=== PATIENT | female | born 1975 | race Caucasian/White ===

== ENCOUNTER → 2021-01-22 11:36 | Outpatient (BNVA) | payer SELFPAY | PROVIDERS: Family Provider Family Medicine; PCP Family Medicine; Visit Provider Obstetrics & Gynecology | DX: Z01.419 Encounter for gynecological examination (general) (routine) without abnormal findings (principal); R63.5 Abnormal weight gain | CPT/HCPCS: 84443; 87624 ==

== ENCOUNTER 2022-05-14 08:51 | Outpatient (CLI) | payer SELFPAY ==
--- NOTE | 2022-05-14 09:13 | MM_ITS ---
WS: [id number] BILATERAL SCREENING DIGITAL TOMOSYNTHESIS MAMMOGRAM WITH CAD HISTORY: SCREEN COMPARISON: 12/19/2018 and 07/23/2015 Bilateral CC and MLO views with tomosynthesis and synthetic mammography submitted. Computer aided det ection analyzed. Breast composition: There are scattered areas of fibroglandular density. No suspicious masses, microc alcifications or architectural distortion. MM/[place] [id number] IMPRESSION: BI-RADS: 1-Negative FOLLOW UP: 1 Year Follow-up
== END 2022-05-14 08:52 | disposition home or self-care (01) ==
PROVIDERS: PCP Family Medicine; Visit Provider Nurse Practitioner Women's Health
DX: Z12.31 Encounter for screening mammogram for malignant neoplasm of breast (principal)
CPT/HCPCS: 77063; 77067

== ENCOUNTER 2025-01-16 22:01 | Emergency (ER) | payer BC, SELFPAY ==
--- OUTSIDE RECORDS SUMMARY | 2025-01-16 22:04 | XMS_ITS | Encounter Summary ---
Author Organization [facility] Address [address] [place] [address] Care Team Providers Care Test Technician Name Role Phone Jessenia Peters MD Primary Care Provider +1- [phone] Encounter Details Date Type Department Care Team (Latest Contact Info) Description 06/05/2002 Outpatient Historical [facility] Family Medicine [place] [address] [facility] [address] [place] [address] Terrence Cabrera DO NO ADDRESS ON FILE PREG EXAM-PREG UNCONFIRM (Primary Dx) Social History Tobacco Use Types Packs/Day Years Used Date Smoking Tobacco: Never Assessed Comments Unknown Sex and Gender Information Value Date Recorded Sex Assigned at Not on file 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
--- OUTSIDE RECORDS SUMMARY | 2025-01-16 22:04 | XMS_ITS | Clinical Summary ---
Author Organization [facility] Address [address] [place] [address] Care Team Providers Care Earth Science Technician Name Role Phone Jessenia Peters MD Primary Care Provider +1- [phone] Allergies No known active allergies Medications acetaminophen (TYLENOL) 500 mg tablet Take 500 mg by mouth every 6 hours as needed. 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 ENGINE INSPECTOR Gender Identity Not on file Sexual Orientation Not on file Last Filed Vital Signs Vital Sign Reading Time Taken Comments Blood Pressure 133/66 01/25/2018 8:33 PM GASOLINE ENGINE INSPECTOR Pulse - - Temperature - - Respiratory Rate 16 01/25/2018 8:33 PM GASOLINE ENGINE INSPECTOR Oxygen Saturation 96% 01/25/2018 8:33 PM GASOLINE ENGINE INSPECTOR Inhaled Oxygen Concentration - - Weight 54.9 kg (121 lb) 01/25/2018 7:06 PM GASOLINE ENGINE INSPECTOR Height 157.5 cm (5' 2 ) 01/25/2018 7:06 PM GASOLINE ENGINE INSPECTOR Body Mass Index 22.13 01/25/2018 7:06 PM GASOLINE ENGINE INSPECTOR Plan of Treatment Health Maintenance Due Date Last Done Comments DTAP/TDAP/TD VACCINES (1 - Tdap) 1993 HEPATITIS B VACCINES (1 of 3 - 19+ 3-dose series) 02/22 HPV/Cotest (21-29) 1995 CERVICAL CANCER SCREENING 2004 HPV/Cotest (30-65) 2004 PAP SMEAR 2004 BREAST CANCER SCREENING 2014 COLORECTAL SCREENING 2019 Colorectal Cancer Screening 2019 FIT-DNA Q 3 years 2019 FIT/FOBT Q 1 year 2019 Flex Sig/CT Colonography Q 5 years 2019 ZOSTER VACCINE (1 of 2) 2024 INFLUENZA VACCINE (#1) 2024 Care Teams Earth Science Technician Relationship Specialty Start Date End Date Jessenia Peters MD [address] [place] [address] PCP - General Family Practice 01/25/18
--- OUTSIDE RECORDS SUMMARY | 2025-01-16 22:04 | XMS_ITS | Encounter Summary ---
Author Organization [facility] Address [address] [place] [address] Care Team Providers Care Aerodynamics Professor Name Role Phone Jessenia Peters MD Primary Care Provider +1- [phone] Encounter Details Date Type Department Care Team (Late st Contact Info) Description 02/28/2007 Outpatient Historical [facility] Family Medicine [address] [place] [address] Jose Alejandro Bennett, PA NO ADDRESS ON FILE Social History Tobacco Use Types Packs/Day Years Used Date Smoking Tobacco: Never Assessed Comments Unknown Sex and Gender Information Value Date Recorded Sex Assigned at Not on file Legal Sex Female 6:00 AM PATROL GUARD Gender Identity Not on file Sexual Orientation Not on file documented as of this encounter Plan of Treatment Not on file documented as of this encounter Visit Diagnoses Not on filedocumented in this encounter Care Teams Aerodynamics Professor Relationship Specialty Start Date End Date Jessenia Peters MD [address] [place] [address] PCP - General Family Practice 01/25/18 documented as of this encounter
--- OUTSIDE RECORDS SUMMARY | 2025-01-16 22:04 | XMS_ITS | Encounter Summary ---
Author Organization [facility] Address [address] [place] [address] Care Team Providers Care Furnace Puncher Name Role Phone Jessenia Peters MD Primary Care Provider +1- [phone] Encounter Details Date Type Department Care Team (Latest Contact Info) Description 02/26/2005 Outpatient Historical [facility] Family Medicine [address] [place] [address] Reva Cavazos NP NO ADDRESS ON FILE ACUTE SINUSITIS NOS (Primary Dx); ACUTE BRONCHITIS Social History Tobacco Use Types Packs/Day Years Used Date Smoking Tobacco: Never Assessed Comments Unknown Sex and Gender Information Value Date Recorded Sex Assigned at Not on file Legal Sex Female 6: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
--- OUTSIDE RECORDS SUMMARY | 2025-01-16 22:04 | XMS_ITS | Encounter Summary ---
Author Organization [facility] Address [address] [place] [address] Care Team Providers Care Recreation Instructor Name Role Phone Jessenia Peters MD Primary Care Provider +1- [phone] Encounter Details Date Type Department Care Team (Latest Contact Info) Description 07/28/1999 Outpatient Historical [facility] Family Medicine [place] [address] [facility] 60 [place] [address] Mikel Luther MD [address] [facility] [address] [place] [address] state, incidental (Primary Dx) Social History Tobacco Use Types Packs/Day Years Used Date Smoking Tobacco: Never Assessed Comments Unknown Sex and Gender Information Value Date Recorded Sex Assigned at Not on file Legal Sex Female 6:00 AM ADMIN PROG COORD Gender Identity Not on file Sexual Orientation Not on file documented as of this encounter Plan of Treatment Not on file documented as of this encounter Visit Diagnoses Diagnosis state, incidental- Primary documented in this encounter Care Teams Recreation Instructor Relationship Specialty Start Date End Date Jessenia Peters MD [address] [place] [address] PCP - General Family Practice 01/25/18 documented as of this encounter
--- OUTSIDE RECORDS SUMMARY | 2025-01-16 22:04 | XMS_ITS | Encounter Summary ---
Author Organization [facility] Address [address] [place] [address] Care Team Providers Care Facility Manager Name Role Phone Jessenia Peters MD Primary Care Provider +1- [phone] Encounter Details Date Type Department Care Team (Latest Contact Info) Description 03/16/2001 Outpatient Historical [facility] Family Medicine [place] 104 [facility] 60 [place] [address] Jaky Lima MD NO ADDRESS ON FILE ACUTE BRONCHITIS (Primary Dx); UNS ASTHMA WOSTATUS ASTHMATICUS Social History Tobacco Use Types Packs/Day Years Used Date Smoking Tobacco: Never Assessed Comments Unknown Sex and Gender Information Value Date Recorded Sex Assigned at Not on file Legal Sex Female 6:00 AM OUTREACH COUNSELOR Gender Identity Not on file Sexual Orientation Not on file documented as of this encounter Plan of Treatment Not on file documented as of this encounter Visit Diagnoses Diagnosis Acute bronchitis- Primary Unspecified asthma(493.90) Unspecified asthma documented in this encounter Care Teams Facility Manager Relationship Specialty Start Date End Date Jessenia Peters MD [address] [place] [address] PCP - General Family Practice 01/25/18 documented as of this encounter
--- OUTSIDE RECORDS SUMMARY | 2025-01-16 22:04 | XMS_ITS | Encounter Summary ---
Author Organization [facility] Address [address] [place] [address] Care Team Providers Care Sales Consultant Residential Manager Name Role Phone Jessenia Peters MD Primary Care Provider +1- [phone] Encounter Details Date Type Department Care Team (Latest Contact Info) Description 05/24/2001 Outpatient Historical [facility] Family Medicine [place] [address] [facility] 60 [place] [address] Terrence Cabrera DO NO ADDRESS ON FILE ACUTE SINUSITIS NOS (Primary Dx); DERMATITIS NOS Social History Tobacco Use Types Packs/Day Years Used Date Smoking Tobacco: Never Assessed Comments Unknown Sex and Gender Information Value Date Recorded Sex Assigned at Not on file Legal Sex Female 6:00 AM BARREL CAP SETTER Gender Identity Not on file Sexual Orientation Not on file documented as of this encounter Plan of Treatment Not on file documented as of this encounter Visit Diagnoses Diagnosis Acute sinusitis, unspecified- Primary Contact dermatitis and other eczema, due to unspecified cause documented in this encounter Care Teams Sales Consultant Residential Manager Relationship Specialty Start Date End Date Jessenia Peters MD [address] [place] [address] PCP - General Family Practice 01/25/18 documented as of this encounter
--- OUTSIDE RECORDS SUMMARY | 2025-01-16 22:04 | XMS_ITS | Encounter Summary ---
Author Organization [facility] Address [address] [place] [address] Care Team Providers Care Framework Developer Name Role Phone Jessenia Peters MD Primary Care Provider +1- [phone] Encounter Details Date Type Department Care Team (Latest Contact Info) Description 05/14/1998 Outpatient Historical [facility] Family Medicine [place] [address] [facility] 60 [place] [address] Terrence Cabrera DO NO ADDRESS ON FILE Pneumonia, organism unspecified(486) (Primary Dx) Social History Tobacco Use Types Packs/Day Years Used Date Smoking Tobacco: Never Assessed Comments Unknown Sex and Gender Information Value Date Recorded Sex Assigned at Not on file Legal Sex Female 6:00 AM DIRECTOR OF ENTERPRISE ARCHITECTURE Gender Identity Not on file Sexual Orientation Not on file documented as of this encounter Plan of Treatment Not on file documented as of this encounter Visit Diagnoses Diagnosis Pneumonia, organism unspecified(486)- Primary Pneumonia, organism unspecified documented in this encounter Care Teams Framework Developer Relationship Specialty Start Date End Date Jessenia Peters MD [address] [place] [address] PCP - General Family Practice 01/25/18 documented as of this encounter
--- OUTSIDE RECORDS SUMMARY | 2025-01-16 22:04 | XMS_ITS | Encounter Summary ---
Author Organization [facility] Address [address] [place] [address] Care Team Providers Care Steel Box Toe Inserter Name Role Phone Jessenia Peters MD Primary Care Provider +1- [phone] Encounter Details Date Type Department Care Team (Latest Contact Info) Description 04/09/2002 Outpatient [facility] Family Medicine [place] [address] [facility] 60 [place] [address] Mkiel Luther MD [address] [address] MENSTRUAL DISORDER NOS (Primary Dx) Social History Tobacco Use Types Packs/Day Years Used Date Smoking Tobacco: Never Assessed Comments Unknown Sex and Gender Information Value Date Recorded Sex Assigned at Not on file Legal Sex Female 6:00 AM PICKERS MATERIAL HANDLERS Gender Identity Not on file Sexual Orientation Not on file documented as of this encounter Plan of Treatment Not on file documented as of this encounter Visit Diagnoses Diagnosis Unspecified disorder of menstruation and other abnormal bleeding from female genital tract- Primary documented in this encounter Care Teams Steel Box Toe Inserter Relationship Specialty Start Date End Date Jessenia Peters MD [address] [place] [address] PCP - General Family Practice 01/25/18 documented as of this encounter
--- OUTSIDE RECORDS SUMMARY | 2025-01-16 22:04 | XMS_ITS | Encounter Summary ---
Author Organization [facility] Address [address] [place] [address] Care Team Providers Care Lime Boiler Name Role Phone Jessenia Peters MD Primary Care Provider +1- [phone] Encounter Details Date Type Department Care Team (Latest Contact Info) Description 04/13/1999 Outpatient Historical [facility] Family Medicine [place] [address] [facility] 60 [place] [address] Terrence Cabrera, NO ADDRESS ON FILE Acute upper respiratory infections of unspecified site (Primary Dx) Social History Tobacco Use Types Packs/Day Years Used Date Smoking Tobacco: Never Assessed Comments Unknown Sex and Gender Information Value Date Recorded Sex Assigned at Not on file Legal Sex Female 6:00 AM CLIENT PROGRAM MANAGER Gender Identity Not on file Sexual Orientation Not on file documented as of this encounter Plan of Treatment Not on file documented as of this encounter Visit Diagnoses Diagnosis Acute upper respiratory infections of unspecified site- Primary documented in this encounter Care Teams Lime Boiler Relationship Specialty Start Date End Date Jessenia Peters MD [address] [place] [address] PCP - General Family Practice 01/25/18 documented as of this encounter
--- OUTSIDE RECORDS SUMMARY | 2025-01-16 22:04 | XMS_ITS | Clinical Summary ---
Author Organization [facility] Address [address] [place]: Epic Prelude ADT [place] [address] Care Team Providers Care Income Tax Analyst Name Role Phone Jessenia Peters MD Primary Care Provider +1- [phone] Allergies No known active allergies Medications acetaminophen (TYLENOL) 500 mg tablet Take 500 mg by mouth every 6 hours as needed. 01/25/2018 Active Social History Tobacco Use Types Packs/Day Years Used Date Smoking Tobacco: Never Smokeless Tobacco: Never Alcohol Use Standard Drinks/Week Comments No 0 (1 standard drink = 0.6 oz pur e alcohol) Comments Unknown Sex and Gender Information Value Date Recorded Sex Assigned at Not on file Legal Sex Female 4:03 PM PHYSICIAN REPRESENTATIVE Gender Identity Not on file Sexual Orientation Not on file Last Filed Vital Signs Vital Sign Reading Time Taken Comments Blood Pressure 133/66 01/25/2018 8:33 PM PHYSICIAN REPRESENTATIVE Pulse - - Temperature - - Respiratory Rate 16 01/25/2018 8:33 PM PHYSICIAN REPRESENTATIVE Oxygen Saturation - - Inhaled Oxygen Concentration - - Weight 54.9 kg (121 lb) 01/25/2018 7:06 PM PHYSICIAN REPRESENTATIVE Height 157.5 cm (5' 2 ) 01/25/2018 7:06 PM PHYSICIAN REPRESENTATIVE Body Mass Index 22.13 01/25/2018 7:06 PM PHYSICIAN REPRESENTATIVE Plan of Treatment Health Maintenance Due Date [...] 2024 INFLUENZA VACCINE (#1) 2024 Care Teams Income Tax Analyst Relationship Specialty Start Date End Date Jessenia Peters MD [address] [place] [address] PCP - General Family Practice 01/25/18
[2025-01-16 22:12] VITALS: BP 145/90; PULSE 110; RESP 17; TEMP 36.8; O2SAT 96; BMI 24.5
--- NOTE | 2025-01-16 22:14 | CTR_ITS ---
PROCEDURE INFORMATION: Exam: CT Head Without Contrast Exam date and time: 01/16/2025 10:18 PM Age: 49 years old Clinical indication: Stroke-like symptoms; Headache and vomiting; Additional info: Symptoms of acute stroke TECHNIQUE: Imaging protocol: Computed tomography of the head without contrast. Radiation optimization: All CT scans at this facility use at least one of these dose optimization techniques: automated exposure control; mA and/or kV adjustment per patient size (includes targeted exams where dose is matched to clinical indication); or iterative reconstruction. Other technique: STROKE PROTOCOL was implemented. COMPARISON: MR head wo con* [id number] 06/15/2018 4:14 PM RADIATION DOSE METRICS: Total DLP (mGy-cm): 979.87 FINDINGS: Brain: Normal. No hemorrhage. Unremarkable white matter. No mass effect. Cerebral ventricles: No ventriculomegaly. Paranasal sinuses: Visualized sinuses are unremarkable. No fluid levels. Mastoid air cells: Visualized mastoid air cells are well aerated. Bones: Unremarkable. No acute fracture. Soft tissues: Unremarkable. CT/CT head thrombolytic [id number] IMPRESSION: No acute intracranial abnormality. ASSESSMENT: ASPECTS ([place] Stroke Program Early CT Score) is 10.
--- NOTE | 2025-01-16 22:14 | ECG_ITS ---
[facility] Date: 2025-01-16 Pat Name: Allie Ortiz Department: Room: Gender: Female Costumed Character: : 1975 Requested By: Seth Rodrigues Order Number: [id number] Abdoul MD: Elsy Samuel M.D. Measurements Intervals [place] Rate: 105 P: 61 TN: 157 QRS: 50 QRSD: 80 T: 48 QT: 319 QTc: 422 Interpretive Statements SINUS TACHYCARDIA ABNORMAL RHYTHM ECG Compared to ECG 06/16/2018 01:12:16 Sinus rhythm no longer present Sinus arrhythmia no longer present Electronically Signed On 01-17-2025 17:24:42 FLOORMAN by Elsy Samuel M.D. [id number]
--- NOTE | 2025-01-16 22:16 | ED_ITS ---
HPI - Neuro Symptoms/Deficit 2 General: Chief Complaint: Neuro Symptoms/Deficit Stated Complaint: stroke Time Seen by Provider: 01/16/25 22:09 History of Present Illness: 49-year-old female presents emergency ro om complaining left-sided weakness headache photophobia nausea and began at around 30 minutes prior to arrival. She has had a severe headache all day. She reports she has had TIAs in the past she is on amlodipine she is not on any antiplatelet therapy or statins. No chest pain or shortness of breath. Initial NIH score of 3 with weakness on left arm left leg and ataxia of the left arm Associated symptoms: Deny chest pain Related Data Home Medications ?Medication ?Instructions ?Recorded ?Confirmed clonidine HCl 0.1 mg tablet 1 mg PO BID PRN 04/30/22 0 04/30/24 Previous Rx's ?Medication ?Instructions ?Recorded amlodipine 5 mg tablet See Rx Instructions PO DAILY 90 04/30/24 days #125 tabs norgestimate 0.25 mg-ethinyl See Rx Instructions .Rout e 09/04/24 estradiol 0.035 mg tablet .COMPLEX #84 tabs (Estarylla) aspirin 81 mg tablet,delayed 81 mg PO DAILY #30 tabs 1 03/19/24 release Allergies Allergy/AdvReac Type Severity Reaction Status Date / Time coconut Allergy Severe throat Verified 04/30/24 09:14 swells and rash Review of Systems 2 Const: Denies: fever(s) or chills Card: Denies: chest pain Resp: Denies: dyspnea GI: Denies: abdominal pain : Denies: dysuria, urinary frequency or urinary urgency Musc: Denies: neck pain or back pain Skin/Breast: Denies: rash PFSH ED 2 PFSH: Medical History Palpitation Depression Was on medication while being evaluated for possible TIA. Transient ischemic attack (~03/2018) Hypertension Surgical History [place] teeth removed (~1994) Family History Mother Hypertension Heart disease Grandmother Hypertension Maternal Hypercholesterolemia Maternal Grandfather Heart disease Maternal Denies family history of Colon cancer Ovarian cancer Diabetes Hyperlipidemia Breast cancer Uterine cancer Thyroid disease Stroke Social History Smoking and tobacco/nicotine status: never used tobacco/nicotine NIH stroke score 2 NIHSS: Level Of Consciousness - 1a: 0 Level Of Consciousness Questions - 1b: Both Correct Level Of Consciousness Commands - 1c: Both Correct Best Gaze - 2: Normal Visual Garcia - 3: No Visual Loss Facial Palsy - 4: N ormal Motor Arm Right - 5: No Drift Motor Arm Left - 5: Drift Motor Leg Right - 6: No Drift Motor Leg Left - 6: Drift Limb Ataxia - 7: Present In One Limb Sensory - 8: Normal Best Language - 9: No Aphasia Dysarthia - 10: Normal Extinction And Inattention - 11: 0 Score: Total Score: 3 Physical Exam 2 Const: GENERAL APPEARANCE: cooperative ORIENTATION/CONSCIOUSNESS: Yes awake, Yes oriented to person, Yes oriented to place and Yes oriented to time HENMT: COMMON NORMALS: normocephalic, atraumatic and hearing grossly normal bilaterally HEAD & SCALP: normocephalic and atraumatic Resp: COMMON NORMALS: normal respiratory effort, No retractions, No use of accessory muscles and clear to auscultation bilaterally AUSCULTATION: clear to auscultation bilaterally Cardio: COMMON NORMALS: regular rate, regular rhythm and No murmurs present (Cardio) RATE: regular rate RHYTHM: regular rhythm GI: COMMON NORMALS: Soft to palpation and No hepatosplenomegaly present A USCULTATION: Yes normoactive bowel sounds PALPATION: Yes Soft to palpation, No Tenderness to palpation present (GI), No Guarding due to palpation present (GI) and Yes No hepatosplenomegaly present Extremity: COMMON NORMALS: normal to inspection, capillary refill normal, no clubbing, cyanosis or edema, no calf tenderness and no pedal edema Neuro: SENSORIUM/ORIENTATION: Yes oriented to person, Yes oriented to place and Yes oriented to time Skin: COMMON NORMALS: no rashes or lesions noted GENERAL SKIN EXAM: no rashes or lesions noted Course 2 Vital Signs: Vital signs: Vital Signs Temperature 98.3 F 01/16/25 22:12 Pulse Rate 81 01/17/25 01:30 Respiratory Rate 17 01/16/25 22:12 Blood Pressure 133/78 01/17/25 01:30 Pulse Oximetry 99 01/17/25 01:30 Oxygen Delivery Me thod Room Air 01/17/25 01:30 MDM - Neuro Symptoms/Deficit Medical Decision Making Initial stroke exam has an NIH of 3 however it is not consistent. Her sensation is normal she has weakness in the left arm and leg ataxia in the left arm. I consulted [facility] on-call they are on-call for us for stroke alert they seen patient via telehealth. The doctor on-call agrees he has believes this is more of a migraine with aura does not think that this is a acute CVA and does not recommend TNKase at this time. He does recommend treating the headache. Headache is improved tried to ambulate the patient a couple of times she still has some weakness in her left leg. Patient prefers to go home her symptoms have resolved the headache is better. Medical decision making Social determinants: Family support is with the patient in the emergency room I reviewed the patient's medical record. I reviewed the patient's current home meds Alternate historians: None Differential diagnosis TIA versus CVA versus migraine with aura Lab Review: Labs reviewed as found in the chart no acute findings Imaging: CT head negative for acute CVA or masses Assessment of risk: Level of risk: Low Hospitalization considerations: Considered hospitalization however symptoms resolved Reexamination: On repeat exam no focal findings Assessment and plan: On-call neurology from [facility] is seeing patient via telehealth he concurs that this is likely not an acute CVA he recommends treating the headache which we did the headache improved symptoms resolved patient prefers to go home. She reports that she has had TIAs in the past will place her on baby aspirin daily and have her follow-up with neurology case management has been asked to make a follow-up appointment with neurology. Medical Records I reviewed the patient's medical records. Lab Data I reviewed the patient's lab results. 01/16/25 22:16 01/16/25 22:[address] 01/16/25 22:14 IMPRESSION: No acute intracranial abnormality. ASSESSMENT: ASPECTS ([place] Stroke Program Early CT Score) is 10. ADDENDUM: 01/16/25 134 THIS REPORT CONTAINS FINDINGS THAT MAY BE CRITICAL TO PATIENT CARE. The findings were verbally communicated via telephone conference with SETH BOLAND at 10:31 PM GAS METER INSTALLER on 01/16/2025. The findings were acknowledged and understood. Laboratory Results WBC 9.00 10^3/uL (3.29-11.43) 01/16/25 22:16 RBC 4.69 10^6/uL (3.85-5.65) 01/16/25 22:16 Hgb 13.70 g/dL (11.27-16.99) 01/16/25 22:16 Hct 40.5 % (36-47) 01/16/25 22:16 MCV 86.4 fl (85-98) 01/16/25 22:16 MCH 29.2 pg (27-33) 01/16/25 22:16 MCHC 33.8 g/dL (30-55) 01/16/25 22:16 RDW 12.8 % (12.1-15.1) 01/16/25 22:16 Plt Count 339 10^3/cmm (157-399) 01/16/25 22:16 MPV 9.2 fL (7.4-10.4) 01/16/25 22:16 Neut % (Auto) 63.8 % 01/16/25 22:16 Lymph % (Auto) 28.9 % 01/16/25 22:16 [place] % (Auto) 5.9 % 01/16/25 22:16 Eos % (Auto) 0.6 % 01/16/25 22:16 Baso % (Auto) 0.6 % 01/16/25 22:16 Neut # (Auto) 5.75 10^3/uL (1.8-7.7) 01/16/25 22:16 Lymph # (Auto) 2.6 10^3/uL (0.8-4.8) 01/16/25 22:16 [place] # (Auto) 0.5 10^3/uL (0.2-0.9) 01/16/25 22:16 Eos # (Auto) 0.1 10^3/uL (0.0-0.8) 01/16/25 22:16 Baso # (Auto) 0.1 10^3/uL (0.0-0.1) 01/16/25 22:16 Nucleated RBC % (auto) 0 % 01/16/25 22:16 Nucleated RBCs # 0.0 /100WBC 01/16/25 22:16 PT 12.70 SECONDS (12.1-14.9) 01/16/25 22:16 INR 0.89 (0.8-1.2) 01/16/25 22:16 APTT 26.0 SECONDS (23.9-36.7) 01/16/25 22:16 Sodium 140 mmol/L (136-145) 01/16/25 22:16 Potassium 3.7 mmol/L (3.5-5.1) 01/16/25 22:16 Chloride 104 mmol/L (98-107) 01/16/25 22:16 Carbon Dioxide 23 mmol/L (22-29) 01/16/25 22:16 Anion Gap 16.7 (5-19) 01/16/25 22:16 BUN 15 mg/dL (6-20) 01/16/25 22:16 Creatinine 0.8 mg/dL (0.5-0.9) 01/16/25 22:16 GFR Calculation 75.9 mL/min (90-130) L 01/16/25 22:16 Glucose 118 mg/dL (65-115) H 01/16/25 22:16 POC Glucose 115 mg/dL (70-110) H 01/16/25 22:11 Calculated Osmolality 292 mOsm/kg (285-295) 01/16/25 22:16 Calcium 8.8 mg/dL (8.5-10.5) 01/16/25 22:16 Total Bilirubin 0.2 mg/dL (0.15-1.2) 01/16/25 22:16 AST 17 U/L (0-32) 01/16/25 22:16 ALT 19 U/L (0-33) 01/16/25 22:16 Alkaline Phosphatase 90 U/L (35-105) 01/16/25 22:16 Total Protein 7.8 g/dL (6.6-8.7) 01/16/25 22:16 Albumin 4.2 g/dL (3.5-5.2) 01/16/25 22:16 Globulin 3.6 g/dL (1.3-4.6) 01/16/25 22:16 Urine Color Yellow (Yellow) 01/17/25 00:06 Urine Appearance Clear (CLEAR) 01/17/25 00:06 Urine pH 5.5 (5-7) 01/17/25 00:06 Ur Specific [place] 1.023 (1.005-1.030) 01/17/25 00:06 Urine Protein Trace (Negative) A 01/17/25 00:06 Urine Glucose (UA) Negative (Normal) 01/17/25 00:06 Urine Ketones Negative (Negative) 01/17/25 00:06 Urine Blood 3+ (Negative) A 01/17/25 00:06 Urine Nitrate Negative (Negative) 01/17/25 00:06 Urine Bilirubin Negative (Negative) 01/17/25 00:06 Urine Urobilinogen 0.2 mg/dL (Negative) 01/17/25 00:06 Ur Leukocyte Esterase Negative (Negative) 01/17/25 00:06 Urine RBC 21-50 /hpf (0-2) H 01/17/25 00:06 Urine WBC 0-5 /hpf (0-5) 01/17/25 00:06 Ur Squamous Epith Cells 0-5 /hpf (0-5) 01/17/25 00:06 Amorphous Sediment Not Reportable 01/17/25 00:06 Urine Bacteria Trace /hpf (NONE) 01/17/25 00:06 Hyaline Casts 1.21 /lpf 01/17/25 00:06 Urine Opiates Screen Negative ng/mL (Negative) 01/17/25 00:06 Ur Barbiturates Screen Negative ng/mL (Negative) 01/17/25 00:06 Ur Phencyclidine Scrn Negative ng/mL (Negative) 01/17/25 00:06 Ur Amphetamines Screen Negative ng/mL (Negative) 01/17/25 00:06 U Benzodiazepines Scrn Negative ng/mL (Negative) 01/17/25 00:06 Urine Cocaine Screen Negative ng/mL (Negative) 01/17/25 00:06 U Marijuana (THC) Screen Negative ng/mL (Negative) 01/17/25 00:06 All radiology interpretation(s) finalized by discharge Discharge Plan Discharge Patient Disposition: Home Clinical Impression: Migraine headache with aura Condition: Stable Prescriptions: New aspirin 81 mg tablet,delayed release (DR/EC) 81 mg PO DAILY Qty: 30 0RF No Action clonidine HCl 0.1 mg tablet 1 mg PO BID PRN amlodipine 5 mg tablet See Rx Instructions PO DAILY 90 Days Qty: 125 3RF Rx Instructions: 1 tab by mouth one day alternating with next day taking 2 tab by mouth and cont *PLEASE MAIL norgestimate-ethinyl estradiol [Estarylla] 0.25-0.035 mg tablet See Rx Instructions .ROUTE .COMPLEX Qty: 84 1RF Dose Instruction: TAKE 1 TABLET BY MOUTH DAILY Rx Instructions: TAKE 1 TABLET BY MOUTH DAILY Discharge Orders: Discharge ED (Routine); Ordered 01/17/25 Ordered By: Seth Boland Referrals: Js Quiñones, LEASING ASSOCIATE [Primary Care Provider, Family Practice] Discharge Diet: Usual diet Discharge Activity: Resume usual activity Patient Instructions: Opioid Safety, Pain Management, Patient Portal & Fabricio Instructions Activity Restrictions/Additional Instructions: [facility]. It is very important that you follow up as instructed or that you return to the Emergency Department should you have concerns or if your condition changes or worsens in any way. Emergency department visits are focused on emergent conditions, in some cases you may require further evaluation on an outpatient basis. You were seen in the emergency room with a complaint of headache with symptoms on the left side. We evaluated for stroke. Your CT of your head was negative the on-call stroke neurologist seen you as well. He concurred he did not think you are actually having a stroke at this point and did not recommend TNKase. He felt your symptoms were related to a migraine with aura. You responded well to the medications we gave the emergency room for the headache. fund manager will make arrangements for you to follow-up with neurology as an outpatient. You would reported that you previously had a TIA we do recommend he take baby aspirin daily (Please note that included in your discharge packet is information concerning opioid safety and pain management. This information is given to all patients were discharged from the ER regardless of their discharge diagnosis or the medicines they usually take or are prescribed.) Print Language: Spanish Coding Level of Care Code ED Product Support Consultant for [employer]ang
[2025-01-16 22:35] LABS: Hematocrit 40.5 % (36-47); Hemoglobin 13.70 g/dL (11.27-16.99); Mean Corpuscular HGB Conc 33.8 g/dL (30-55); Mean Corpuscular Hemoglobin 29.2 pg (27-33); Mean Corpuscular Volume 86.4 fl (85-98); Nucleated Red Blood Cells % 0 %; Platelet Count 339 10^3/cmm (157-399); Red Blood Count 4.69 10^6/uL (3.85-5.65); White Blood Count 9.00 10^3/uL (3.29-11.43)
[2025-01-16 22:39] LABS: INR 0.89 (0.8-1.2); Prothrombin Time 12.70 SECONDS (12.1-14.9)
[2025-01-16 22:41] LABS: Partial Thromboplastin Time 26.0 SECONDS (23.9-36.7)
[2025-01-16 22:44] LABS: Alanine Aminotransferase 19 U/L (0-33); Albumin Level 4.2 g/dL (3.5-5.2); Alkaline Phosphatase 90 U/L (35-105); Anion Gap 16.7 (5-19); Aspartate Amino Transferase 17 U/L (0-32); Blood Urea Nitrogen 15 mg/dL (6-20); Calcium 8.8 mg/dL (8.5-10.5); Carbon Dioxide 23 mmol/L (22-29); Chloride 104 mmol/L (98-107); Globulin 3.6 g/dL (1.3-4.6); Glucose 118 mg/dL (65-115); Osmolality Calculated 292 mOsm/kg (285-295); Potassium 3.7 mmol/L (3.5-5.1); Sodium 140 mmol/L (136-145); Total Protein 7.8 g/dL (6.6-8.7)
[2025-01-16] MEDS: orphenadrine 30 mg/mL Inj 2 mL 60 MG IM (22:44)
[2025-01-16 22:46] VITALS: BP 126/84; PULSE 99; O2SAT 95
[2025-01-16 23:01] VITALS: BP 102/84; PULSE 95; O2SAT 95
[2025-01-16 23:16] VITALS: BP 110/67; PULSE 76; O2SAT 94
[2025-01-16 23:31] VITALS: BP 103/61; PULSE 70; O2SAT 96
[2025-01-16] MEDS: diphenhydrAMINE 50 mg/mL SDV 1mL IVP (23:39)
[2025-01-16 23:46] VITALS: BP 119/86; PULSE 86; O2SAT 96
[2025-01-17] VITALS (8 sets, daily range): BP systolic 112–139; BP diastolic 69–86; PULSE 66–95; O2SAT 95–99
[2025-01-17 00:16] LABS: Glucose Urine UA Negative (Normal); Nitrate Urine Negative (Negative); Specific Gravity, Urine 1.023 (1.005-1.030)
[2025-01-17 00:18] LABS: Add Urine Microscopic? YES
[2025-01-17 00:23] LABS: PCP Screen Urine Negative (Negative)
--- NOTE | 2025-01-17 09:16 | DCPLANNER ---
messaged neuro for er f/u
== END 2025-01-17 02:21 | disposition home or self-care (01) ==
PROVIDERS: Emergency Provider Family Medicine; PCP Registered Nurse
DX: G43.109 Migraine with aura, not intractable, without status migrainosus (principal); I10 Essential (primary) hypertension; Z86.73 Personal history of transient ischemic attack (TIA), and cerebral infarction without residual deficits
CPT/HCPCS: 36416; 70450; 80053; 80306; 81001; 82962; 85025; 85610; 85730; 87077; 87086; 87186; 93005; 96372; 96374; 96375; 99285; J0780; J1200; J1885; J2360; J7030